=== PATIENT | male | born 1990 | race Caucasian/White ===

== ENCOUNTER 2016-06-30 21:31 | Emergency (ER) | payer SELFPAY ==
[~2016-06-30 21:31] MED LIST: AMOX875T20 PO; LORT5TAB PO; Z.0.NO CURRENT MEDS
[2016-06-30 21:33] VITALS: BP 165/98; PULSE 82; RESP 14; TEMP 98.5; O2SAT 98
== END 2016-06-30 22:00 | disposition left against medical advice (07) ==
LOC: NED 21:31
DX: L02.91 Cutaneous abscess, unspecified (principal)
CPT/HCPCS: 99281

== ENCOUNTER 2017-08-10 17:05 | Emergency (ER) | END 2017-08-10 19:15 | disposition home or self-care (01) | DX: M25.561 Pain in right knee (principal); Z72.0 Tobacco use; X50.0XXA Overexertion from strenuous movement or load, initial encounter | CPT/HCPCS: 73564; 96372; 99283; J1885 ==